=== PATIENT | female | born 1995 | race Caucasian/White ===

== ENCOUNTER → 2018-06-05 | Outpatient (REF) | payer OTHER ==
[2018-06-05 21:08] LABS: CHLAMYDIA DNA AMPLIFICATION NEGATIVE (NEGATIVE); GC DNA AMPLIFICATION NEGATIVE (NEGATIVE)
== END ==
LOC: M SFHCLERA 14:19
DX: R30.0 Dysuria (principal)

== ENCOUNTER → 2019-08-03 | Outpatient (CLI) | payer OTHER ==
--- NOTE | 2019-08-03 14:55 | REP ---
CT brain: 08/03/2019. Indication: Seizure. Comparison: None. Technique: Unenhanced axial CT images of the brain were obtained from skull base to vertex. Findings: There is no acute intracranial hemorrhage, acute cortical infarction, mass effect or hemorrhage. The visualized paranasal sinuses/mastoid air cells are clear. Impression: No acute intracranial process or definite seizure focus. Electronically Signed by Donnie العراقي DO 08/03/2019 02:45 P
--- NOTE | 2019-08-04 10:23 | ECGEPIP ---
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
== END ==
LOC: M RAD 14:17
PROVIDERS: ATTEND Nurse Practitioner Family
DX: R55 Syncope and collapse (principal); R56.9 Unspecified convulsions

== ENCOUNTER → 2019-08-10 | Outpatient (CLI) | payer OTHER ==
--- NOTE | 2019-08-10 10:20 | REP ---
ULTRASOUND ABDOMINAL AORTA: Real-time sonographic evaluation of the abdominal aorta performed. There is no sonographic evidence abdominal aortic aneurysm. Maximum AP diameter proximally is 1.9 cm, mid aspect 1.3 to 1.4 cm, and distally just above the bifurcation 1.1 cm. Common iliac arteries both measure 6 x 7 mm. IMPRESSION: No sonographic evidence of abdominal aortic aneurysm. Unreviewed
== END ==
LOC: M RAD 07:34
PROVIDERS: ATTEND Nurse Practitioner Family
DX: R03.1 Nonspecific low blood-pressure reading (principal); R55 Syncope and collapse

== ENCOUNTER → 2019-08-16 | Outpatient (CLI) | payer OTHER | LOC: M SLEEP 08:22 | PROVIDERS: ATTEND Nurse Practitioner Family | DX: R56.9 Unspecified convulsions (principal) ==